=== PATIENT | female | born 1935 | race Caucasian/White ===

== ENCOUNTER 2017-08-27 07:44 | Observation (INO) | payer MEDICARE, OTHER ==
[2017-08-27 08:42] LABS: ABS Basophils 0 10^3/ul (0-0.2); ABS Eosinophils 0 10^3/ul (0-0.6); ABS Lymphocytes 0.2 10^3/ul (1.0-4.8); ABS Monocytes 0.7 10^3/ul (0-0.8); ABS Neutrophils 14.3 10^3/ul (1.5-7.7); ABS Nucleated RBC 0 10^3/ul; Eosinophil % 0.2 % (0-6); Hematocrit 43 % (35-47); Hemoglobin 14.5 g/dl (12.0-16.0); Lymphocyte % 1.4 % (25-47); Mean Corpuscular HGB Conc 34 g/dl (31-36); Mean Corpuscular Hemoglobin 31 pg (27-31); Mean Corpuscular Volume 92 fL (80-97); Mean Platelet Volume 9.1 um3 (7.4-10.4); Nucleated Red Blood Cells % 0.1; Platelet Count 186 10^3/ul (150-450); Red Blood Count 4.69 10^6/ul (4.0-5.4); Red Cell Distribution Width 15 % (10.5-15); White Blood Count 15.3 10^3/ul (3.5-10.8)
[2017-08-27 08:59] LABS: EGFR Non-African American 57.9 (>60)
--- NOTE | 2017-08-27 09:59 | RAD ---
INDICATION: Epigastric abdominal pain. COMPARISON: No relevant prior exams available on the [facility] for comparison. TECHNIQUE: Dual energy PA and routine lateral views of the chest were obtained. REPORT: Minimal linear atelectasis at the LEFT lung base. The lungs and pleural spaces are otherwise clear. Negative for pneumothorax. The heart, pulmonary vasculature, and mediastinal contours are unremarkable. Negative for free air beneath the diaphragm. Diffuse thoracic degenerative spondylosis. Degenerative arthropathy at the shoulders with loose body at the RIGHT subcoracoid recess. IMPRESSION: 1. Minimal LEFT basilar linear subsegmental atelectasis. 2. Negative for free air beneath the diaphragm.
--- NOTE | 2017-08-27 09:59 | RAD ---
INDICATION: Epigastric pain. COMPARISON: Correlation is made with a prior chest x-ray study from August 27, 2017. TECHNIQUE: Frontal supine films of the abdomen were obtained. FINDINGS: The small bowel and colon appear nondistended. There are several surgical clips in the right upper quadrant most consistent with prior cholecystectomy. There is a calcific density which projects over the lower pole of the left kidney measuring 4 mm in size most suggestive of a renal calculus. There are multiple small calcific densities which project bilaterally over the pelvis. There is severe osteoarthritic change in the right hip. IMPRESSION: 1. NO EVIDENCE FOR OBSTRUCTION. 2. PROBABLE LEFT RENAL CALCULUS. 3. SEVERE OSTEOARTHRITIC CHANGE IN THE RIGHT HIP.
--- NOTE | 2017-08-27 10:31 | RAD ---
INDICATION: Jaundice, epigastric pain. COMPARISON: There are no prior studies available for comparison. TECHNIQUE: Multiple real-time images of the right upper quadrant were obtained. FINDINGS: The patient is status post cholecystectomy. No intra or extrahepatic ductal distention is present. The common bile duct measured 0.7 cm in diameter. The liver is normal in size without significant focal abnormality. The pancreas is partially obscured by overlying bowel gas. The right kidney is normal in size without evidence for hydronephrosis. IMPRESSION: STATUS POST CHOLECYSTECTOMY, OTHERWISE UNREMARKABLE STUDY.
[2017-08-27] MEDS ORDERED: Iodixanol* (CONTRAST) 320 MG/ML 100 ML SDV IV ONE (11:00)
[2017-08-27 12:05] LABS: Urine Appearance Clear; Urine Blood Negative (Negative); Urine Color Amber; Urine Ketones Negative (Negative); Urine Protein Negative (Negative); Urine Specific Gravity 1.013 (1.010-1.030); Urine Urobilinogen Positive (Negative)
[2017-08-27] MEDS ORDERED: Ondansetron INJ* 2 MG/ML VIAL ONE (12:21)
[2017-08-27] MEDS ORDERED: Ondansetron INJ* 2 MG/ML VIAL IV ONE (12:23)
[2017-08-27] MEDS ORDERED: Iodixanol 320 (CONTRAST) 100 ML SDV IV ONE (13:20)
--- NOTE | 2017-08-27 13:55 | RAD ---
Indication: Jaundice, mid abdomen pain. Contrast: Administered 197.2 ml of VISAPAQUE 320 mg/ml CT of the abdomen and pelvis was performed after oral and IV contrast administration. Coronal and sagittal reconstructed images were obtained. Lung bases demonstrate no pleural fluid, nodules or masses. Heart is of normal size without evidence of pericardial effusion. The liver is normal in size. There are no focal lesions or intrahepatic ductal dilatation noted. The patient is status post cholecystectomy. The common duct measures up to 8 mm. No abrupt termination of the duct is noted. The pancreas demonstrates hypodense area in the uncinate process. The possibility of pancreatitis should be considered. No pancreatic duct dilatation is noted however. The spleen is normal in size. No adrenal lesions are noted. The kidneys demonstrate symmetric nephrograms without focal lesions. Atherosclerotic aorta is noted. Inferior vena cava is unremarkable. No dilated loops of bowel are noted. The colon is filled with stool. The uterus and ovaries are unremarkable. Small bowel demonstrates no evidence of abnormal dilatation. No pelvic adenopathy is noted. The bladder is unremarkable. The appendix is visualized and is normal. No dilated loops of bowel are noted. IMPRESSION: Patient is status post cholecystectomy. There is a prominent common duct however no abrupt termination noted. Prominent common duct measures up to 8 mm and may be due to postcholecystectomy state of the patient. No focal hepatic lesions are noted. Hypodense area in the uncinate process and head of pancreas for which pancreatic head should be considered.
[2017-08-27] MEDS ORDERED: Ciprofloxacin 400MG IVPREMIX(* 400 MG/200 ML BAG IVPB ONE (14:02)
[2017-08-27] MEDS ORDERED: cefTRIAXone(*) 1 GM in NS 0.9% 50 ML* 50 ML IVPB ONE (14:02)
[2017-08-27] MEDS ORDERED: metroNIDAZOLE IV 500 MG/100ML* 500 MG/100 ML BAG IVPB ONE (14:03)
[2017-08-27] MEDS ORDERED: Ondansetron INJ* 2 MG/ML VIAL IV PRN (14:25)
[2017-08-27] MEDS ORDERED: NS 0.9% 1000 ML* 1,000 ML IV SCH (14:30)
[2017-08-27 14:45] LABS: ABS Basophils 0 10^3/ul (0-0.2); ABS Eosinophils 0 10^3/ul (0-0.6); ABS Lymphocytes 0.5 10^3/ul (1.0-4.8); ABS Monocytes 1.1 10^3/ul (0-0.8); ABS Neutrophils 15.1 10^3/ul (1.5-7.7); ABS Nucleated RBC 0 10^3/ul; Eosinophil % 0.1 % (0-6); Hematocrit 41 % (35-47); Hemoglobin 13.7 g/dl (12.0-16.0); Mean Corpuscular HGB Conc 34 g/dl (31-36); Mean Corpuscular Hemoglobin 31 pg (27-31); Mean Corpuscular Volume 92 fL (80-97); Mean Platelet Volume 8.9 um3 (7.4-10.4); Nucleated Red Blood Cells % 0; Platelet Count 187 10^3/ul (150-450); Red Blood Count 4.44 10^6/ul (4.0-5.4); Red Cell Distribution Width 15 % (10.5-15); White Blood Count 16.7 10^3/ul (3.5-10.8)
[2017-08-27 15:01] LABS: EGFR Non-African American 64.2 (>60); INR 1.07 (0.77-1.02)
--- NOTE | 2017-08-27 16:16 | HP ---
CC: Dr. Matias; Dr. Krishna* HISTORY AND PHYSICAL: DATE OF ADMISSION: 08/27/17 PRIMARY CARE PROVIDER: Dr. Matias. ATTENDING PHYSICIAN WHILE IN THE HOSPITAL: Flaquita Aguillon MD* (report dictated by Larry Salgado NP). CONSULTING HOSPITAL COOK: Dr. Krishna. CHIEF COMPLAINT: Abdominal pain. HISTORY OF PRESENT ILLNESS: Ms. Perez is an 82-year-old female patient. She has a history of hypertension, GERD, history of cholelithiasis and cataract extraction. She comes into the ED today. She says that since April last year she has had 5 attacks, she recalls them where she gets pain in the epigastric area, right upper and right lower quadrant and that does radiate down into her stomach with associated nausea with diarrhea, often times associated after eating food. She said the last time she had attacks was in June, but then since in August she has had 3 attacks like this, particularly in the setting of eating food. She said most recently last night she had a styles soup and she noted that couple hours later she started getting the pain again. She said it is just under her ribcage, described it as a pressure. She has felt bloated. She felt nauseous. She did not vomit or have diarrhea at this time, but the pain usually went away, but it persisted and she woke up this morning with the pain still there. She was concerned because it just was not going away. She had no fevers or chills that she is aware of. She did not vomit. She was concerned, ended up coming into the ER. She denied having any chest pain. No shortness of breath. No diarrhea this time around. She describes the pain would kind of come and go in waves and it was just unrelenting. She had an attack not quite as severe as it was previously about a year ago and required an ERCP down in [place]. She came here, was evaluated in the ED and it was noted that her LFTs were elevated. The CT was concerning for the increasing size in the gallbladder duct and we were asked to evaluate for admission. PAST MEDICAL HISTORY: Significant for: 1. Hypertension. 2. GERD. 3. Cholelithiasis. 4. Cataracts. PAST SURGICAL HISTORY: 1. She has had cholecystectomy. 2. ERCP done a year ago in [facility] in [place]. We are trying to get records. 3. Cataract extraction. HOME MEDICATIONS: Included: 1. Tylenol 2 tabs p.o. b.i.d. 2. Prilosec 20 mg daily. 3. Hydrochlorothiazide 25 mg daily. 4. Atenolol 25 mg daily. ALLERGIES TO MEDICATIONS: Include BACITRACIN, NEOMYCIN, and POLYMYXIN B. FAMILY HISTORY: Mother had a history of heart disease. Father had a history of CVA. SOCIAL HISTORY: She does not smoke. She rarely drinks alcohol. Surrogate decisionmaker is her daughter. REVIEW OF SYSTEMS: There is no documented fever. She denies any significant weight change. There is no double vision. She denies having any ear discharge. There is no rhinorrhea. There is no sore throat. No thyroid enlargement. She denies having any chest pain. There is no orthopnea and there is no nocturnal dyspnea. There was abdominal pain per my HPI. There was nausea and vomiting with previous attacks and not today's. She denies having any lightheadedness. No dysuria, no frequency. There was no seizure and no loss of consciousness. No pruritus and no skin ulcerations. Review of 14 systems completed, all others negative. PHYSICAL EXAMINATION GENERAL: At this time, Ms. Perez is an 82-year-old female patient. She is sitting in the ED stretcher. She does not appear to be in any acute distress. VITAL SIGNS: Blood pressure 123/80, pulse 87, respirations 14, O2 sat 97%, temperature 98.6. HEENT: Head: Atraumatic and normocephalic. Eyes: EOMs are intact. Sclerae anicteric and not pale. Throat: Oral mucosa appears to be moist. No oropharyngeal erythema. NECK: Supple. LUNGS: Clear to auscultation bilaterally. No wheezes, rales, or rhonchi. HEART: Sounds S1, S2. Regular rate and rhythm. No murmurs, rubs, or gallops. ABDOMEN: Soft. It was flat, nontender. EXTREMITIES: Pulses were 2+ throughout. She is able to move all 4 extremities with 5/5 strength. NEUROLOGICAL: The patient is awake. She is alert. She is oriented x3. Tongue midline. No gross focal deficits. SKIN: Intact. DIAGNOSTIC STUDIES/LAB DATA: WBC of 15.3, RBC of 4.69, hemoglobin 14.5, hematocrit of 43, platelet count of 186. Chemistries: Sodium of 139, potassium of 3.8, chloride of 101, bicarb 28, BUN is 13, creatinine of 0.93, glucose 144, lactic 2.0, calcium 9.3. Total bili 2.1, AST 675, ALT 538, alk phos 238. Troponin 0.01, repeat 0.01. Lipase 13. Urine showed positive urobilinogen, 2+ leukocyte esterase, 1+ wbc's. She had multiple imaging here in the ED. Chest x-ray obtained today revealed minimal left basilar subsegmental atelectasis, negative for free air beneath the diaphragm. She did have an abdominal x-ray obtained today, no evidence for obstruction, probable left renal calculus, severe osteoarthritic change in the right hip. Abdominal pelvis CT obtained today revealing the patient is status post cholecystectomy. There is a prominent duct; however, no abrupt termination noted, prominent common duct measured up to 8 mm and may be due to post cholecystectomy state of the patient. No focal hepatic lesions are noted. Hypodense area in the uncinate process of the head of the pancreas for which pancreatic head should be considered. Ultrasound gallbladder, status post cholecystectomy, otherwise unremarkable study. She had an EKG obtained today showing normal sinus rhythm, rate of 87, no ST elevations or T-wave inversions were noted, no previous for comparison. Old medical records were reviewed. ASSESSMENT AND PLAN: Ms. Perez is an 82-year-old female patient coming into the ED today with complaints of abdominal pain, on evaluation found to have elevated liver function tests. The pain is associated with p.o. intake. We were asked to evaluate for admission. She will be admitted under observation status for: 1. Choledocholithiasis. Again, at this point, Dr. Krishna will be evaluating. Plan will be for MRCP. I do note the concern for the pancreatic process. Again , the MRCP is being obtained and GI will be asked to evaluate as well. At this point, she is pain free. My plan will be to repeat her LFTs in the morning, hydrate her, n.p.o. after midnight for possible ERCP in the morning as she may need stenting or stone extraction. Again, GI will be evaluating. 2. Leukocytosis. This could be a leukemoid reaction due to the pain. She is no longer tender. She has no fever here. She did receive 1 dose of antibiotics in the ED. We will panculture her. We will follow her. Should she spike a fever, I have a low threshold to restart antibiotics. 3. Hypertension. Continue meds as prescribed with the exception of the hydrochlorothiazide. 4. Gastroesophageal reflux disease. Continue PPI therapy. 5. History of gallstones. Again, at this point, GI will be following. I did also place a nutrition consult. The patient is to avoid fatty meals. 6. History of cataracts. Follow up with PCP. 7. DVT Prophylaxis: Heparin subcu has been ordered. 8. Code status: Full code. 9. Fluids, electrolytes, and nutrition: Clear liquid diet and n.p.o. after midnight. TIME SPENT: Time spent on admission 50 minutes, greater than half the time was spent [id number] with the patient obtaining my history and physical, other half of the time was spent going over the plan of care with the patient and implementing the plan of care. I discussed the plan of care with my attending, Dr. Aguillon, she is in agreement. LARRY SALGADO, MARLENE [id number]/[facility] #: [id number] [place]
[2017-08-27] MEDS: Atenolol TAB* 25 MG PO SCH (16:33)
--- NOTE | 2017-08-27 17:52 | RAD ---
Indication: Abdominal pain. Axial T2 fat sat, coronal T2 and heavily T2-weighted images of the biliary tree was obtained. 3-D reconstructed images were obtained. There is no evidence of biliary duct dilatation noted. No evidence of filling defect is noted to suggest a common duct stone. No abrupt termination of the common bile duct is noted. The left and right hepatic ducts are unremarkable. The pancreatic duct demonstrates no evidence of abnormal dilatation. There may be evidence of a separate origin of the pancreatic duct and the common bile duct suggestive of pancreatic divisum. IMPRESSION: No filling defects are noted. Patient status post cholecystectomy.
--- NOTE | 2017-08-27 21:25 | CONS ---
GASTROENTEROLOGY CONSULTATION REPORT: DATE OF CONSULT: 08/27/17 CONSULTING PHYSICIAN: Dr. Roderick Kaiser, and Dr. Cherri Matias [facility]*. REASON FOR CONSULTATION: Epigastric pain and elevated liver function tests. HISTORY OF PRESENT ILLNESS: This 82-year-old woman developed epigastric pain yesterday evening. It lasted all night. There was profound nausea, but no vomiting. She was feeling distressed this morning, came to the emergency room. Over the next couple of hours, the pain dissipated. Her vital signs were normal , but no fever. Her white count was elevated at 15 and LFTs elevated with transaminases in the 100s. She was admitted to the floor. She had had similar pain on August 25 and also on August 21. About four months ago, she had three days of significant pain but decided that she was taking her medications on her own, although at once she decided to spread them out and she did seem to do better for a couple of months. Going back to June 2016 with the similar pain, she was seen at [facility] in [place], [place] where she underwent ERCP and removal of bile duct stones. Those records are under request. Prior to that, she had had her gallbladder out in 1996 at this hospital. PAST MEDICAL HISTORY: Cholecystectomy, obesity. DICTATION ENDS ABRUPTLY HERE. [id number]/[facility] #: [id number] [facility] CENTERHope
[2017-08-27 21:51] LABS: Urine Appearance Clear; Urine Blood Negative (Negative); Urine Color Yellow; Urine Ketones Negative (Negative); Urine Protein Negative (Negative); Urine Specific Gravity 1.031 (1.010-1.030); Urine Urobilinogen Negative (Negative)
[2017-08-27] MEDS ORDERED: Heparin VIAL(*) 5000 UNITS/ML VIAL (FIVE THOUSAND) SUBCUT SCH (22:00)
--- NOTE | 2017-08-27 22:08 | CONS ---
GASTROENTEROLOGY CONSULT: DATE: 08/27/17 CONSULTING PHYSICIANS: Roderick Kaiser, ER; Cherri Matias, [facility]* REASON FOR CONSULTATION: Epigastric pain and abnormal liver function test. HISTORY OF PRESENT ILLNESS: This 82-year-old woman, who had her gallbladder out in 1996 at this hospital has had epigastric pain for number of times over the last 15 months. Last night, she developed severe pain and had it all night. There was nausea, but no vomiting. She came to the emergency room, where her vitals were stable and there was no fever. Her LFTs were substantially up and her white count had 15. She had had epigastric pain and an ERCP performed at [facility] in [place], [place], June 2016. Reportedly, bile duct stones were removed. She had recurring pain 3 days in late April 2017 and decided that she would just change the way she took her medications. She then seemed to be okay until 08/21/17 and she had pain and that relapsed on 08/25/17. She has never had any fever with any of these episodes. PAST MEDICAL HISTORY: 1. Hypertension - no sequelae. 2. Gastroesophageal reflux. 3. Status post cholecystectomy. 4. Status post cataract surgery. OUTPATIENT MEDICATIONS: Prilosec 20. Hydrochlorothiazide 25. Atenolol 25. Tylenol p.r.n. ALLERGIES: She lists TRIPLE ANTIBIOT[employer]MENT is causing a rash. She does not take NSAIDs. FAMILY HISTORY: No gastrointestinal problems she can recall. Her mother of CHF, her father of a CVA. 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 She has a daughter and granddaughter in town. She goes to [place] every year. REVIEW OF SYSTEMS: No history of seizures, syncope, CVA, UT, congestive failure , TB, hemoptysis, hepatitis, or renal stones. She had a colonoscopy over 15 years ago through the [facility] and recalls it was negative. PHYSICAL EXAMINATION: She is a generally healthy-appearing older woman, in no overt distress. She is anicteric. Her lungs are clear and heart sounds are normal. The abdomen is obese with normal bowel sounds, soft, and nontender. She has not had any pain in 8 hours. Extremities unremarkable. DIAGNOSTIC STUDIES/LAB DATA: Hemoglobin 13.7, hematocrit 41, platelets 187. BUN 12, creatinine 0.85. Bilirubin 2.1, AST 675, ALT 238. Lipase 13. Right upper quadrant ultrasound - no stones. MRCP - no stones. IMPRESSION AND PLAN: This 82-year-old woman with recurring pain consistent with biliary colic and seemingly confirmed as such with the elevated LFTs today , has had resolution of her pain and a negative MRCP. This might predict that she has passed the final stone. That theory needs to be confirmed by continuation without pain and resolution of LFTs. Awaiting that conclusion she will be provisionally set up for possible ERCP tomorrow, acknowledging it is probably only 25% likely that it will be needed acutely. Her course has been marked by many abrupt symptoms so ERCP may be needed for continuation of that pattern. [id number]/[facility] #: [id number] [place]
[2017-08-28 08:45] LABS: Hematocrit 38 % (35-47); Mean Corpuscular HGB Conc 34 g/dl (31-36); Mean Corpuscular Hemoglobin 32 pg (27-31); Mean Corpuscular Volume 93 fL (80-97); Mean Platelet Volume 9.8 um3 (7.4-10.4); Platelet Count 177 10^3/ul (150-450); Red Blood Count 4.12 10^6/ul (4.0-5.4); Red Cell Distribution Width 15 % (10.5-15); White Blood Count 9.6 10^3/ul (3.5-10.8)
[2017-08-28 08:52] LABS: INR 1.23 (0.77-1.02)
[2017-08-28] MEDS ORDERED: Omeprazole CAP* 20 MG PO SCH (09:00)
[2017-08-28] MEDS: Atenolol TAB* 25 MG PO SCH (10:02)
[2017-08-28 15:43] VITALS: BP 138/56
--- NOTE | 2017-08-28 20:00 | DS ---
CC: Dr. Matias; Dr. Krishna* DISCHARGE SUMMARY: DATE OF ADMISSION: 08/27/17 DATE OF DISCHARGE: 08/28/17 PRIMARY CARE PROVIDER: Dr. Matias. DISCHARGE DIAGNOSES: Right upper quadrant abdominal pain and elevation of liver function tests, likely due to transient choledocholithiasis that resolved. SECONDARY DIAGNOSES: 1. Status post cholecystectomy. 2. History of ERCP in June 2017 in [place] for choledocholithiasis. 3. History of hypertension. 4. History of gastroesophageal reflux disease. MEDICATIONS AT DISCHARGE: Include: 1. Acetaminophen on a p.r.n. basis. 2. Atenolol 25 mg daily. 3. Hydrochlorothiazide 25 mg daily. 4. Omeprazole 20 mg daily. LABORATORY DATA AND STUDIES PERFORMED DURING HOSPITAL STAY: Included: On 08/28, total bilirubin of 2.7, AST of 203, ALT of 308, alkaline phosphatase of 198. Lipase below 10. On 08/27/17, AST of 675, ALT of 538, alkaline phosphatase of 238. Lipase of 13. CBC on 08/28/17, white blood cell count of 9.2, hemoglobin of 13.0, hematocrit 38, and platelets of 177. Microbiology test showed negative blood cultures so far and urine culture that was unremarkable, showed mixed hubert with likely contamination. MRCP performed on 08/27/17, impression: "No filling defects are noted. The patient is status post cholecystectomy." Further on, in the body of the report , it is mentioned that there may be evidence of separate origin of the pancreatic duct in the common bile duct suggestive of pancreatic divisum. Abdomen and pelvis CT obtained on 08/27/17, impression: "The patient is status post cholecystectomy. There is a prominent common bile duct; however, no obstruction noted. Prominent common bile duct measures up to 8 mm and maybe due to postcholecystectomy state in the patient. No focal hepatic lesions are noted. Hypodense area in the uncinate process and the head of pancreas for which pancreatic head process should be considered." Gallbladder ultrasound obtained at admission, impression: "Status post cholecystectomy. Otherwise, unremarkable study." CONSULTATIONS DURING THE HOSPITAL STAY: Included Dr. Krishna from Gastroenterology. HOSPITALIZATION COURSE: Sandra Perez is an 82-year-old female with a history of status post cholecystectomy, history of recurrent choledocholithiasis for which she was evaluated with ERCP in one of the hospitals in [place] in June 2017, who presented complaining of right upper quadrant abdominal pain. Her liver function tests were elevated, but there was no evidence of choledocholithiasis. A subsequent MRCP showed no abnormalities of the common bile duct. At this point, it was thought and presumed that the patient must have passed common bile duct stone. Dr. Krishna saw the patient for consultation and recommended a followup outpatient. The patient was observed on medical floor. She was given initially antibiotics since she had mild leukocytosis. No evidence of infection was noted throughout her hospital stay and the antibiotics were discontinued. At this point, the patient likely passed the common bile duct stone and she is going to follow up with Dr. Krishna in approximately 2 weeks. DIET AT DISCHARGE: Low fat. PHYSICAL EXAMINATION AT DISCHARGE: Blood pressure of 143/55, heart rate of 72 and regular, respiratory rate 17, oxygen saturation 97% on room air, temperature 98.4. General: The patient is a very pleasant 82-year-old female, who is in no acute distress. Alert, awake, and oriented x3. HEENT: Head: Atraumatic, normocephalic. Eyes: Pupils are equal, reactive to light and accommodation. Oropharynx is clear. Mucosa moist. Neck: Supple. No JVD. No bruits bilaterally. Cardiovascular: Regular rate and rhythm. No murmur. Respiratory: Clear to auscultation bilaterally. Abdomen: Soft, nontender. Bowel sounds are present in all 4 quadrants. Extremities: There is no edema. Pulses are +2 bilaterally. No clubbing or cyanosis. Neuro Evaluation: Speech clear. Cranial nerves II through XII grossly intact. Motor strength is 5/5 bilaterally. Please note that this is a short summary of the patient's hospitalization. Please refer to further medical records for details. TIME SPENT: Approximately 45 minutes was spent on the patient's discharge. [id number]/[facility] #: [id number] [facility]
--- NOTE | 2017-08-29 13:51 | ED ---
Lemuel Haywood Stephanie, scribed for Roderick Kaiser MD on 08/27/17 at 1408 . Progress - Progress Note Progress Note: At 14:00, Dr. Krishna recommends MRCP, admission, and abx for cholangitis. Course/Dx - Course Course Of Treatment: At 13:46, ED physician talked to Dr. Aguillon about possible admission of the pt. Dr. Aguillon accepts the pt for admission. - Diagnoses Provider Diagnoses: EKG abnormality - Provider Notifications Discussed Care Of Patient With: Flaquita Aguillon Time Discussed With Above Provider: 13:46 Instructed by Provider To: Admit As Observation Discharge - Sign-Out/Discharge Documenting (check all that apply): Discharge/Admit/Transfer - Discharge Plan Condition: Stable Disposition: ADMITTED TO [facility] - Billing Disposition and Condition Condition: STABLE Disposition: [facility] The documentation as recorded by the Lemuel jesus Stephanie accurately reflects the service I personally performed and the decisions made by Job dc Jerry, MD.
--- NOTE | 2017-08-29 13:52 | ED ---
Brianna Haywood Julia, scribed for Roderick Kaiser MD on 08/27/17 at 0801 . Abdominal Pain/Female - HPI Summary HPI Summary: This patient is a 82 year old F BIBA to [facility] accompanied by her family with a chief complaint of intermittent abdominal pain since 05/02/18 she describes as attacks. She describes her attacks as sudden onset upper abdominal pain described as pressure with nausea, diarrhea, and dizziness. She states she feels like she is going to blow up when she is having these attacks. She reports these attacks typically last an hour and have occurred on 05/02/17, , 08/21/17, and 08/25/17. She states the attack began last night and has been constant but gradually improving since then. The patient rates the pain 7/10 in severity currently but rates it 10/10 earlier today. Patient denies fever, sweats, SOB, and black BM. Her last BM was yesterday. She believes she is gaining weight. She is scheduled for a GI appointment tomorrow at [place]. Medications and allergies reviewed with patient. - History of Current Complaint Chief Complaint: EDAbdPain Stated Complaint: ABD PAIN Time Seen by Provider: 08/27/17 07:57 Hx Obtained From: Patient Onset/Duration: Sudden Onset, Lasting Hours Timing: Intermittent Episode Lasting - hour Severity Initially: Severe Severity Currently: Moderate Pain Intensity: 7 Pain Scale Used: 0-10 Numeric Location: Epigastric - upper abdomen Character: Other: - pressure, "explode" Alleviating Factor(s): Nothing Associated Signs and Symptoms: Positive: Dizzy, Nausea, Diarrhea Allergies/Adverse Reactions: Allergies Allergy/AdvReac Type Severity Reaction Status Date / Time bacitracin Allergy Rash And Verified 08/27/17 07:56 Itching neomycin Allergy Rash And Verified 08/27/17 07:56 [From Neosporin Itching ([id number])] polymyxin B Allergy Rash And Verified 08/27/17 07:56 [From Neosporin Itching ([id number])] Home Medications: Home Medications Acetaminophen [Tylenol Arthritis] 2 tab PO BID 08/27/17 [History Confirmed 08/27] PMH/Surg Hx/FS Hx/Imm Hx Cardiovascular History: Reports: Hx Hypertension GI History: Reports: Hx Gastroesophageal Reflux Disease Musculoskeletal History: Reports: Hx Arthritis - fingers, Hx Bursitis - hip Sensory History: Reports: Hx Cataracts - pending surgery, Hx Contacts or Glasses Denies: Hx Hearing Aid Opthamlomology History: Reports: Hx Cataracts - pending surgery, Hx Contacts or Glasses - Surgical History Surgery Procedure, Year, and Place: tonsils as a child. gall bladder removed [place] [facility] [place] Anesthesia Reactions: No Infectious Disease History: No Infectious Disease History: Denies: Traveled Outside the [place] in Last 30 Days - Family History Known Family History: Positive: Other - CVA grandfather Negative: Cardiac Disease - no [place] - Social History Occupation: Retired Alcohol Use: Rare Substance Use Type: Reports: None Smoking Status (MU): Never Smoked Tobacco Review of Systems Negative: Fever, Chills, Skin Diaphoresis Negative: Erythema Negative: Sore Throat Negative: Chest Pain Negative: Shortness Of Breath, Cough Gastrointestinal: Other - black stool Positive: Abdominal Pain, Diarrhea, Nausea. Negative: Vomiting Negative: dysuria, hematuria Negative: Myalgia, Edema Negative: Rash Neurological: Other - dizziness All Other Systems Reviewed And Are Negative: Yes Physical Exam - Summary Physical Exam Summary: Constitutional: Well-developed, Well-nourished, Alert. (-) Distressed Skin: Warm, Dry HENT: Normocephalic; Atraumatic Eyes: Conjunctiva normal Neck: Musculoskeletal ROM normal neck. (-) JVD, (-) Stridor, (-) Tracheal deviation Cardio: Rhythm regular, rate normal, Heart sounds normal; Intact distal pulses; The pedal pulses are 2+ and symmetric. Radial pulses are 2+ and symmetric. (-) Murmur Pulmonary/Chest wall: Effort normal. (-) Respiratory distress, (-) Wheezes, (-) Rales Abd: Soft, (-) Tenderness, (-) Distension, (-) Guarding, (-) Rebound Musculoskeletal: (-) Edema Lymph: (-) Cervical adenopathy Neuro: Alert, Oriented x3 Psych: Mood and affect Normal Triage Information Reviewed: Yes Vital Signs On Initial Exam: Initial Vitals Temp Pulse Resp BP Pulse Ox 98.6 F 92 23 154/87 95 08/27/17 07:49 08/27/17 07:49 08/27/17 07:49 08/27/17 07:49 08/27/17 07:49 Vital Signs Reviewed: Yes Diagnostics - Vital Signs Vital Signs Temp Pulse Resp BP Pulse Ox 08/27/17 07:49 98.6 F 92 23 154/87 95 - Laboratory Lab Results: Lab Results 08/27/17 08/27/17 08/27/17 Range/Units 08:33 08:33 08:33 WBC 15.3 H (3.5-10.8) 10^3/ul RBC 4.69 (4.0-5.4) 10^6/ul Hgb 14.5 (12.0-16.0) g/dl Hct 43 (35-47) % MCV 92 (80-97) fL MCH 31 (27-31) pg MCHC 34 (31-36) g/dl RDW 15 (10.5-15) % Plt Count 186 (150-450) 10^3/ul MPV 9.1 (7.4-10.4) um3 Neut % (Auto) 93.4 H (38-83) % Lymph % (Auto) 1.4 L (25-47) % Dunn % (Auto) 4.8 (0-7) % Eos % (Auto) 0.2 (0-6) % Baso % (Auto) 0.2 (0-2) % Absolute Neuts (auto) 14.3 H (1.5-7.7) 10^3/ul Absolute Lymphs (auto) 0.2 L (1.0-4.8) 10^3/ul Absolute Monos (auto) 0.7 (0-0.8) 10^3/ul Absolute Eos (auto) 0 (0-0.6) 10^3/ul Absolute Basos (auto) 0 (0-0.2) 10^3/ul Absolute Nucleated RBC 0 10^3/ul Nucleated RBC % 0.1 Sodium 139 (139-145) mmol/L Potassium 3.8 (3.5-5.0) mmol/L Chloride 101 (101-111) mmol/L Carbon Dioxide 28 (22-32) mmol/L Anion Gap 10 (2-11) mmol/L BUN 13 (6-24) mg/dL Creatinine 0.93 (0.51-0.95) mg/dL Est GFR ( Amer) 74.4 (>60) Est GFR (Non-Af Amer) 57.9 (>60) BUN/Creatinine Ratio 14.0 (8-20) Glucose 144 H (70-100) mg/dL Lactic Acid 2.0 (0.5-2.0) mmol/L Calcium 9.3 (8.6-10.3) mg/dL Total Bilirubin 2.10 H (0.2-1.0) mg/dL AST 675 H (13-39) U/L ALT 538 H (7-52) U/L Alkaline Phosphatase 238 H (34-104) U/L Troponin I 0.01 (<0.04) ng/mL Total Protein 7.3 (6.4-8.9) g/dL Albumin 4.1 (3.2-5.2) g/dL Globulin 3.2 (2-4) g/dL Albumin/Globulin Ratio 1.3 (1-3) Lipase 13 (11.0-82.0) U/L Urine Color Urine Appearance Urine pH (5-9) Ur Specific Douglas (1.010-1.030) Urine Protein (Negative) Urine Ketones (Negative) Urine Blood (Negative) Urine Nitrate (Negative) Urine Bilirubin (Negative) Urine Urobilinogen (Negative) Ur Leukocyte Esterase (Negative) Urine WBC (Auto) (Absent) Urine RBC (Auto) (Absent) Ur Squamous Epith Cells (Absent) Urine Bacteria (Absent) Urine Glucose (Negative) 08/27/17 08/27/17 Range/Units 11:18 11:22 WBC (3.5-10.8) 10^3/ul RBC (4.0-5.4) 10^6/ul Hgb (12.0-16.0) g/dl Hct (35-47) % MCV (80-97) fL MCH (27-31) pg MCHC (31-36) g/dl RDW (10.5-15) % Plt Count (150-450) 10^3/ul MPV (7.4-10.4) um3 Neut % (Auto) (38-83) % Lymph % (Auto) (25-47) % Dunn % (Auto) (0-7) % Eos % (Auto) (0-6) % Baso % (Auto) (0-2) % Absolute Neuts (auto) (1.5-7.7) 10^3/ul Absolute Lymphs (auto) (1.0-4.8) 10^3/ul Absolute Monos (auto) (0-0.8) 10^3/ul Absolute Eos (auto) (0-0.6) 10^3/ul Absolute Basos (auto) (0-0.2) 10^3/ul Absolute Nucleated RBC 10^3/ul Nucleated RBC % Sodium (139-145) mmol/L Potassium (3.5-5.0) mmol/L Chloride (101-111) mmol/L Carbon Dioxide (22-32) mmol/L Anion Gap (2-11) mmol/L BUN (6-24) mg/dL Creatinine (0.51-0.95) mg/dL Est GFR ( Amer) (>60) Est GFR (Non-Af Amer) (>60) BUN/Creatinine Ratio (8-20) Glucose (70-100) mg/dL Lactic Acid (0.5-2.0) mmol/L Calcium (8.6-10.3) mg/dL Total Bilirubin (0.2-1.0) mg/dL AST (13-39) U/L ALT (7-52) U/L Alkaline Phosphatase (34-104) U/L Troponin I 0.01 (<0.04) ng/mL Total Protein (6.4-8.9) g/dL Albumin (3.2-5.2) g/dL Globulin (2-4) g/dL Albumin/Globulin Ratio (1-3) Lipase (11.0-82.0) U/L Urine Color Yanelis Urine Appearance Clear Urine pH 7.0 (5-9) Ur Specific Douglas 1.013 (1.010-1.030) Urine Protein Negative (Negative) Urine Ketones Negative (Negative) Urine Blood Negative (Negative) Urine Nitrate Negative (Negative) Urine Bilirubin Negative (Negative) Urine Urobilinogen Positive A (Negative) Ur Leukocyte Esterase 2+ A (Negative) Urine WBC (Auto) 1+(6-10/hpf) A (Absent) Urine RBC (Auto) Trace(0-2/hpf) (Absent) Ur Squamous Epith Cells Present A (Absent) Urine Bacteria Absent (Absent) Urine Glucose Negative (Negative) Result Diagrams: 08/28/17 08:08 08/27/17 14:35 Lab Statement: Any lab studies that have been ordered have been reviewed, and results considered in the medical decision making process. - Radiology CXR Radiology Interpretation Completed By: Radiologist - 1. Minimal LEFT basilar linear subsegmental atelectasis. 2. Negative for free air beneath the diaphragm. ED Physician has reviewed this report. Abdomen XR Radiology Interpretation Completed By: Radiologist - 1. NO EVIDENCE FOR OBSTRUCTION. 2. PROBABLE LEFT RENAL CALCULUS. 3. SEVERE OSTEOARTHRITIC CHANGE IN THE RIGHT HIP. ED Physician has reviewed this report. - CT A/P CT Interpretation Completed By: Radiologist - Patient is status post cholecystectomy. There is a prominent common duct however no abrupt termination noted. Prominent common duct measures up to 8 mm and may be due to postcholecystectomy state of the patient. No focal hepatic lesions are noted. Hypodense area in the uncinate process and head of pancreas for which pancreatic head should be considered. ED Physician has reviewed this report. - EKG 0820 Cardiac Rate: NL - at 87 BPM EKG Rhythm: Sinus Rhythm EKG Interpretation: anterior T wave flattening, no STEMI - Additional Comments Diagnostic Additional Comments: A Gallbladder US reveals, as per radiologist: STATUS POST CHOLECYSTECTOMY, OTHERWISE UNREMARKABLE STUDY. ED Physician has reviewed this report. Re-Evaluation - Re-Evaluation 1 Re-Evaluation Time: 13:16 Change: Improved Comment: Pts pain is resolved with no tenderness. Pt states she is feeling better, but had vomitted once. Abdominal Pain Fem Course/Dx - Diagnoses Differential Diagnosis: Positive: Other - acute coronary, IBS, reflux disease Provider Diagnoses: EKG abnormality - Provider Notifications Discussed Care Of Patient With: Feroz Krishna - gastroenterology Time Discussed With Above Provider: 13:11 Instructed by Provider To: Loco Krishna will see due to concern for recurrent common bile duct stone Discharge - Sign-Out/Discharge Documenting (check all that apply): Discharge/Admit/Transfer - admit - Discharge Plan Condition: Stable Disposition: ADMITTED TO [facility] - Billing Disposition and Condition Condition: STABLE [place]position[place] [facility] [place] The documentation as recorded by the Brianna jesus Julia accurately reflects the service I personally performed and the decisions made by , Roderick Kaiser MD.
== END 2017-08-28 16:00 | disposition home or self-care (01) ==
LOC: ED 07:44 → MED 14:22
PROVIDERS: ADMIT Internal Medicine; ATTEND Internal Medicine
DX: R10.11 Right upper quadrant pain (principal); I10 Essential (primary) hypertension; K21.9 Gastro-esophageal reflux disease without esophagitis; K80.20 Calculus of gallbladder without cholecystitis without obstruction; Z88.8 Allergy status to other drugs, medicaments and biological substances; D72.829 Elevated white blood cell count, unspecified
CPT/HCPCS: 36415; 71046; 74018; 74177; 74181; 76376; 76705; 80053; 80076; 81003; 81015; 82565; 83605; 83690; 84484; 84520; 85025; 85027; 85610; 85730; 87040; 87086; 93005; 96365; 99283; A9270-GY; G0378; J0744; J2405; J3490; Q9967

== ENCOUNTER 2019-04-11 19:13 | Emergency (ER) | payer MEDICARE, OTHER ==
[2019-04-11 19:25] VITALS: BP 121/65
--- NOTE | 2019-04-11 20:38 | UC ---
Abdominal Pain Female HPI - HPI Summary HPI Summary: PATIENT HAS BEEN EXPERIENCING EPISODES OF NAUSEA, VOMITING AND DIARRHEA WITH CHILLS INTERMITTENTLY SINCE THE SUMMER. WAS REFERRED TO GASTROENTEROLOGY BY HER PCP WHO STARTED HER ON A PPI. OVER THE PAST 3 DAYS SHE HAS HAD WORSENING SYMPTOMS. CALLED GI YESTERDAY BUT THEY WERE UNABLE TO SEE HER FOR ANOTHER 2 WEEKS SO SHE CAME HERE TODAY. STATES SHE FEELS LIKE HER STOMACH IS TWISTED UP IN KNOTS. SHE WAS GIVEN ZOFRAN BUT HAS BEEN AFRAID TO USE IT BECAUSE SHE READ THE FINE PRINT. - History of Current Complaint Chief Complaint: UCGI Stated Complaint: VOMITING, CHILLS Time Seen by Provider: 04/11/19 20:11 Hx Obtained From: Patient, Family/Voltage Tester - DAUGHTER Severity Initially: Moderate Severity Currently: Mild Pain Intensity: 0 Pain Scale Used: 0-10 Numeric Location: Epigastric Radiates: No Character: Sharp Aggravating Factor(s): Nothing Alleviating Factor(s): Spontaneous Resolution Associated Signs and Symptoms: Positive: Nausea, Vomiting, Diarrhea. Negative: Blood in Stool, Urinary Symptoms Allergies/Adverse Reactions: Allergies Allergy/AdvReac Type Severity Reaction Status Date / Time bacitracin Allergy Rash And Verified 04/11/19 19:26 Itching neomycin Allergy Rash And Verified 04/11/19 19:26 [From Neosporin Itching ([id number])] polymyxin B Allergy Rash And Verified 04/11/19 19:26 [From Neosporin Itching ([id number])] PMH/Surg Hx/FS Hx/Imm Hx Cardiovascular History: Hypertension - Surgical History Surgical History: Yes Surgery Procedure, Year, and Place: Tonsils. Gall bladder removed [place] [facility] [place] - Family History Known Family History: Positive: Other - CVA grandfather Negative: Cardiac Disease - no [place] - Social History Alcohol Use: Rare Substance Use Type: None Smoking Status (MU): Never Smoked Tobacco Review of Systems All Other Systems Reviewed And Are Negative: Yes Constitutional: Positive: Chills Respiratory: Positive: Negative Cardiovascular: Positive: Negative Gastrointestinal: Positive: Vomiting, Diarrhea, Nausea Genitourinary: Positive: Negative Physical Exam Triage Information Reviewed: Yes Appearance: Well-Appearing, No Pain Distress, Well-Nourished Vital Signs: Initial Vital Signs Temp 98.4 F 04/11/19 19:22 Pulse 85 12/07/19 19:22 Resp 18 04/11/19 19:22 BP 121/65 04/11/19 19:22 Pulse Ox 98 04/11/19 19:22 Vital Signs Reviewed: Yes Eyes: Positive: Conjunctiva Clear ENT: Positive: Hearing grossly normal Neck: Positive: Supple, Nontender, No Lymphadenopathy Respiratory Exam: Normal Cardiovascular Exam: Normal Abdomen Description: Positive: Nontender, Soft. Negative: CVA Tenderness (R), CVA Tenderness (L), Distended, Guarding Bowel Sounds: Positive: Present Musculoskeletal: Positive: No Edema Neurological: Positive: Alert Psychological: Positive: Age Appropriate Behavior Skin: Negative: Rashes Abd Pain Female Course/Dx - Course Course Of Treatment: PATIENT TOOK A ZOFRAN DURING THE ENCOUNTER AND STARTED TO FEEL BETTER AFTER A FEW MINUTES. CBC, CMP, LIPASE DRAWN TODAY FOR FURTHER EVALUATION. PATIENT IS ALREADY ESTABLISHED WITH GI FOR THIS CHRONIC PROBLEM AND DOES HAVE AN APPOINTMENT IN 2 WEEKS WHICH I ADVISED HER TO KEEP. SHE WILL GO TO THE ER WITHOUT FAIL IF HER SYMPTOMS WORSEN. - Differential Dx/Diagnosis Provider Diagnosis: Epigastric abdominal pain Discharge ED - Sign-Out/Discharge Documenting (check all that apply): Patient Departure All imaging exams completed and their final reports reviewed: No Studies - Discharge Plan Condition: Stable Disposition: HOME Patient Education Materials: Abdominal Pain (ED) Referrals: Cherri Matias MD [Primary Care Provider] - If Needed Mariel Pritchett NP [Nurse Practitioner] - Additional Instructions: KEEP YOUR GI FOLLOW-UP APPOINTMENT IN 2 WEEKS. TAKE ZOFRAN PRESCRIBED FOR NAUSEA. WATCH YOUR DIET RECOMMEND BLAND FOODS. AVOID GREASY FOOD, SPICY FOOD , CAFFEINE. GO TO THE ER WITHOUT FAIL IF YOU DEVELOP WORSENING PAIN, FEVER, BLOOD IN THE STOOL OR VOMIT, SHORTNESS OF BREATH OR ANY OTHER CONCERNING SYMPTOMS. - Billing Disposition and Condition Condition: STABLE Disposition: Home
--- OUTSIDE RECORDS SUMMARY | 2019-04-11 20:44 | XMS REPORT | Summary of Care ---
:1935 Author Organization [facility] Address [address] [facility] [place] [address] Care Team Providers Name Role Phone Cherri Matias Primary Care Provider Jeremy Torres Unavailable Feroz Cobb MD Unavailable Reason for Referral Refer to Department Only (Routine) Status Reason Specialty Diagnoses / Referred By Referred To Procedures Contact Contact Pending Gastroenterology Diagnoses Vomiting, intractability of vomiting not specified, presence of nausea not specified, unspecified vomiting type Cherri Matias [place] [facility] [address] [facility] gy/[address] [place], [place] [id number] [place] [address] Phone: [phone] Phone: Reason for Visit Reason Comments Osteopenia f/u dexa done today Lab Work Only done last OV 02/04/19 Hypertension f/u BP 122/84 GI Problem discuss ongoing monthly vomiting/diarhea issue Encounter Details Date Type Department Care Team Description 03/10/2019 Office Visit [place] [facility] Cherri Matias MD Vomiting, intractability of vomiting not specified, presence of nausea not specified, unspecified vomiting type (Primary Dx); Medicine [address] [facility] [address] Encounter for bone density measurement for therapeutic drug monitoring [address] [place] [address] [place] [address] [phone] Allergies Active Allergy Reactions Severity Noted Date Comments Bacitracin Zinc Rash 01/24/2009 Ahvhaixm-Elzvkuqsit-Dubpnpeew Rash 08/26/2008 documented as of this encounter (statuses as of 03/10/2019) Medications Medication Sig Dispensed Refills Start Date End Date Status Amoxicillin 500 MG Oral Tab Take 4 Tabs 4 Tab 5 01/16/2018 Active by mouth ONE TIME. Take 1 hour prior to dental work atenolol (TENORMIN) 25 MG Take 1 Tab by 90 Tab 3 02/04/2019 Active Oral Tab mouth DAILY. hydrochlorothiazide (HCTZ, Take 1 Cap by 90 Cap 3 02/04/2019 Active ORETIC) 12.5 MG Oral mouth DAILY. CapIndications: Essential hypertension Omeprazole delayed rel cap Take 20 mg by 90 Cap 1 02/04/2019 Active 20 MG Oral CAPSULE DELAYED mouth DAILY. RELEASEIndications: Gastroesophageal reflux disease, esophagitis presence not specified documented as of this encounter (statuses as of 03/10/2019) Active Problems Problem Noted Date H/O total hip arthroplasty, right 12/26/2017 Primary osteoarthritis of right hip 10/28/2017 Calculus of bile duct 02/01/2017 Overview: Status post cholecystectomy with cbd stones 07/20 in [place] - Status post sphincterotomy BMI 34.0-34.9,adult 01/18/2012 Overview: This patient's BMI has been calculated and is above average, and BMI management plan is completed. General patient education discussion including: obesity-related excess mortality HTN (hypertension) 01/11/2009 Diverticulosis 12/01/2007 Osteopenia 12/01/2007 documented as of this encounter (statuses as of 03/10/2019) Immunizations Name Administration Dates Next Due Depo Medrol (40mg) 01/04/2010 Influenza (IM) Preservative Free 01/21/2013, 01/18/2012 Influenza Vaccine 65 Yrs + 02/04/2019 Influenza Vaccine High Dose 02/01/2017, 01/31/2016, 02/17/2015 PNEUMOCOCCAL POLYSACCHARIDE VACCINE 01/21/2013 Pneumococcal Conjugate(13 Valent) 01/27/2015 TDAP Vaccine 01/13/2010 ZOSTER (ZOSTAVAX) VACCINE 02/17/2015 documented as of this encounter Social History Tobacco Use Types Packs/Day Years Used Date Never Smoker Smokeless Tobacco: Never Used Alcohol Use Drinks/Week oz/Week Comments Yes 0 Standard drinks or equivalent 0.0 rare Sex Assigned at Date Recorded Not on file Job Start Date Occupation Industry Not on file Not on file Not on file Travel History Travel Start Travel End No recent travel history available. documented as of this encounter Last Filed Vital Signs Vital Sign Reading Time Taken Comments Blood Pressure 122/84 03/10/2019 9:17 AM EST Pulse 66 03/10/2019 9:17 AM EST Temperature - - Respiratory Rate - - Oxygen Saturation - - Inhaled Oxygen Concentration - - Weight 83 kg (183 lb) 03/10/2019 9:17 AM EST Height 154.9 cm (5' 1") 03/10/2019 9:17 AM EST Body Mass Index 34.58 03/10/2019 9:17 AM EST documented in this encounter Patient Instructions Patient InstructionsCherri Matias MD - 03/10/2019 9:40 AM ESTBone health: 1. Take 1000-mg of Calcium/day divided dose and with a meal (better absorbed with fat( calcium best out of The diet - Dairy - [place] ( in the can best) sardines) some vegetables - For example cabbage and partcularly bok coleman 2. Take 800- IU Vit D in the form of cholecalficerol (D3). Avoid ergocalciferol (not absorbed well) 3. Weight bearing exercize (walking, etc.) and strength training 4. Daily exposure to sunlight (though not enought to turn skin pink) 5. I recommend visiting the following web site for more information on Vit D supplementation http://www.vitamindcJustyle.[email or web address].shtml documented in this encounter Progress Notes Cherri Matias MD - 03/10/2019 9:40 AM EST NAME:Sandra Perez [birth year] ENC Date: 03/10/2019 CC: Chief Complaint Patient presents with Osteopenia f/u dexa done today Lab Work Only done last OV 02/04/19 Hypertension f/u BP 122/84 GI Problem discuss ongoing monthly vomiting/diarhea issue Sandra Perez is a 83-y.o. female Has history of cholecystecomy - negative right upper quadrant Ultrasound 01/22 1. Having episodic vomiting / diarrhea - onset this summer - 4 episodes- ( ~ 1 month apart) All occur after breakfast Except one after dinner on a travel bus- - feels a tightening and then will proceed to vomit and have diarrhea - episode lasts 20 min - No associated food ( breakfast Episodes occur after coffee/ yogurt- / bagel - - -no stomach symptoms in between - No unusual flushing - 2. Review of dxa - Good bone mineral density - All in the ostepenia zone with no loss in the last 5yrs and little loss since 2002 Current Outpatient Medications Medication Sig Amoxicillin 500 MG Oral Tab Take 4 Tabs by mouth ONE TIME. Take 1 hour prior to dental work atenolol (TENORMIN) 25 MG Oral Tab Take 1 Tab by mouth DAILY. hydrochlorothiazide (HCTZ, ORETIC) 12.5 MG Oral Cap Take 1 Cap by mouth DAILY. Omeprazole delayed rel cap 20 MG Oral CAPSULE DELAYED RELEASE Take 20 mg by mouth DAILY. No current facility-administered medications for this visit. Patient Active Problem List Diagnosis Date Noted H/O total hip arthroplasty, right 12/26/2017 Primary osteoarthritis of right hip 10/28/2017 Calculus of bile duct 02/01/2017 Status post cholecystectomy with cbd stones 07/20 in [place] - Status post sphincterotomy BMI 34.0-34.9,adult 01/18/2012 This patient's BMI has been calculated and is above average, and BMI management plan is completed. General patient education discussion including: obesity-related excess mortality HTN (hypertension) 01/11/2009 Diverticulosis 12/01/2007 Osteopenia 12/01/2007 Family History Problem Relation Age of Onset Respiratory Father Emphysema No Known Problems Sister No Known Problems Daughter No Known Problems Son No Known Problems Sister No Known Problems Daughter Anesth Problems No family history Arthritis No family history Cancer No family history Clotting Disorder No family history Diabetes No family history Heart Disease No family history Hypertension No family history Kidney Disease No family history Thyroid Disease No family history No cardiopulmonary symptoms No upper or lower GI complaints No urinary tract symptoms. No bruising/ bleeding. No neurological complaints . No insomnia.+ . Social History Tobacco Use Smoking status: Never Smoker Smokeless tobacco: Never Used Substance Use Topics Alcohol use: Yes Alcohol/week: 0.0 standard drinks Comment: rare Drug use: No OBJECTIVE: BP 122/84 | Pulse 66 | Ht 5' 1" (1.549 m) | Wt 183 lb (83 kg) | BMI 34.58 kg /m . A/P ICD-9-CM ICD-10-CM 1. Vomiting, intractability of vomiting not specified, presence of nausea not specified, unspecifiedvomiting type Already on omeprazole dailly Status post cholecystectomy - Ask [place] to review 787.03 R11.10 2. Encounter for bone density measurement for therapeutic drug monitoring- Stable good results - Reviewed with the patient in detail V58.83 Z01.89 V58.69 Z79.899 Patient Instructions Bone health: 1. Take 1000-mg of Calcium/day divided dose and with a meal ( better absorbed with fat( calcium best out of The diet - Dairy - [place] ( in the can best) sardines) some vegetables - For example cabbage and partcularly bok coleman 2. Take 800- IU Vit D in the form of cholecalficerol (D3). Avoid ergocalciferol (not absorbed well) 3. Weight bearing exercize (walking, etc.) and strength training 4. Daily exposure to sunlight (though not enought to turn skin pink) 5. I recommend visiting the following web site for more information on Vit D supplementation http://[email or web address]/LatinMedios.[email or web address].[email or web address] AUTHOR: Cherri Matias MD 10:24 03/10/2019 documented in this encounter Plan of Treatment Name Type Priority Associated Diagnoses Order Schedule REFER TO GI Referral Routine Vomiting, intractability of Expected: 2018, vomiting not specified, Expires: 03/10/2020 presence of nausea not specified, unspecified vomiting type Health Maintenance Due Date Last Done Comments HIV SCREENING 08/24/1950 ZOSTER IMMUNIZATION SERIES 04/14/2015 02/17/2015 (2 of 3) MEDICARE ANNUAL WELLNESS 09/24/2018 09/24/2017, 01/31/2016, VISIT 01/27/2015, Additional history exists DEPRESSION SCREENING 02/05/2020 02/04/2019 FALL RISK ASSESSMENT 02/05/2020 02/04/2019, 02/04/2019 PNEUMOCOCCAL 65+YRS Completed 01/27/2015, 01/21/2013 INFLUENZA VACCINE Completed 02/04/2019, 02/01/2017, 01/31/2016, Additional history exists HPV IMMUNIZATION SERIES Aged Out No longer eligible based on patient's age to complete this topic MENINGOCOCCAL VACCINE IMM Aged Out No longer eligible based on patient's age to complete this topic documented as of this encounter Goals Goal Patient Goal Associated Recent Patient-Stated? Author Type Problems Progress Blood Pressure Blood Pressure HTN 122/84 No C[place]et, < 140/90 (hypertension) (03/10/2019 MD Cherri 9:17 AM EST) Note: Hypertension Care Plan Based on the patient's clinical history and according to JNC 8 guidelines target blood pressure goal is less than 140/90. Based on the patient's last blood pressure of BP: 130/82 mmHg the patient is at at goal. As your provider, it is important that I advise you regarding: your current medications and help you with any challenges you may face taking your medications as directed (ex. instructions, cost, side effects, and interactions). lifestyle changes: exercise, weight reduction and diet your clinical goals and how you can achieve success: weight reduction medication management: adjusted medications as appropriate the availability of a auto care center manager to help you with your Hypertension patient education/self-management tools provided: Current self-management tools adequate To successfully manage my Hypertension I will: monitor my blood pressure daily, understanding that my goal is less than 140/ 90 per my healthcare provider's recommendation. I will schedule an appointment with my provider if consistent abnormal readings greater than 160/100. take medications every day as prescribed by my healthcare provider and if unable to take them I will discuss with my provider. monitor for symptoms of chest pain, chest tightness/pressure, irregular heartbeat, persistent dizziness, radiating arm pain, and neck or jaw pain. If any of these symptoms are noticed I will seek medical attention immediately by calling 911 exercise/walk 15 minutes 5 day(s) per week. If I experience chest pain, chest tightness, or shortness of breath, I will seek medical attention immediately. follow a diet rich in fruits, vegetables, and low-fat dairy products with reduced content of saturated & total fat. I will reduce my sodium intake daily. An example is the DASH diet. To obtain more information please refer to the DASH Eating Plan listed in Educational Resources. record my blood pressure results. [employer] is safe and secure way for you to do this in your medical record online. try to obtain an ideal body weight. My recent weight was Weight: 182 lb ( 82.555 kg). My weight loss goal for my next office visit is 5 lbs . limit alcohol consumption. For men two drinks per day and women one drink per day. if currently smoking, will discuss how to quit smoking with my healthcare provider and work towards quitting. Educational Resources: National Heart, Lung, & Blood [place] http://nhlbi.nih.gov/hbp/index.html The DASH Diet Eating Plan http://www.nhlbi.nih.gov/health/health-topics/ topics/dash/ Academy of Nutrition & DIetetics http://eatright.org National Smoking Cessation Site http://smokefree.gov 2 Blood Pressure < 150/90 Blood Pressure 122/84 (03/10/2019 9:17 Cherri Culp MD AM EST) Note: This is an individualized treatment (blood pressure) goal for Sandra Perez: Displayed above (on the left) is your goal for blood pressure control. Your most recent blood pressure is also shown above, on the right. You should try to achieve blood pressures that are lower than your goal listed above (on the left). Weight loss vs. 18 mo Lifestyle 5.6 (03/10/2019 9:17 AM EST) Cherri Culp MD max (lbs) >= 10 Note: This is an individualized lifestyle goal for Sandra Yobany Harrisonyd: Your body mass index (BMI) is more than 30. You should lose weight. A reasonable starting goal is to lose 10 pounds. Displayed above is how many pounds you have lost thus far towards your 10 pound weight loss goal. Take all prescribed medications as directed Self-management Cherri Culp MD Note: This is an individualized self-management goal for Sandra Perez: Please take all prescribed medications as directed. 1. Do not skip doses. If you cannot afford your medications, talk with your doctor. 2. Use a pill reminder system such as a pill box if needed. Your pharmacist can help you with this. 3. Contact your Pharmacy 5 days before your medication runs out. If you cannot take your medications for any reasons, talk with your doctor. 4. Please bring all of your medication bottles and inhalers (or a list of all your medications/inhalers) with you to every visit. Potential barriers to meeting all of your care plan goals will continue to be addressed on an ongoing basis. documented as of this encounter Implants Implanted Type Area Animal Care Attendant Device Shelf Model / Serial Identifier Expiration / Lot Date Continuum Shell, Uni Hole Jj 54mm - [id number] Right: [employer] [id number] / Implanted: Qty: 1 on 12/02/2017 by Hernando Perea MD at [facility] / [id number] Dome Hole Plug - [id number] Right: [facility] 11/03/2027 [id number] / Implanted: Qty: 1 on 12/02/2017 by Hernando Perea MD at [facility] / [id number] Longevity Liner, Neutral Jj 36mm - [id number] Right: [facility] 10/03 [id number] / Implanted: Qty: 1 on 12/02/2017 by Hernando Perea MD at [facility] / [id number] T[place]loc Complete Fem Stem - So Sz 14 - [id number] Right: [employer] 10/23/2027 [id number] / Implanted: Qty: 1 on 12/02/2017 by Hernando Perea MD at [facility] / [id number] Ceramic Modular Head 36 Std - [id number] Right: [employer] 2027 [id number] / Implanted: Qty: 1 on 12/02/2017 by Hernando Perea MD at [facility] / [id number] documented as of this encounter Results Not on filedocumented in this encounter Visit Diagnoses Diagnosis Vomiting, intractability of vomiting not specified, presence of nausea not specified, unspecified vomiting type - Primary Encounter for bone density measurement for therapeutic drug monitoring Encounter for long-term (current) use of other medications documented in this encounter Insurance Payer Benefit Plan / Subscriber ID Effective Dates Phone Address Type Group MEDICARE MEDICARE PART A xxxxxxxxxxx 2001-Present Medicare & B AETNA COMMERCIAL AETNA xxxxxxxxxx 2015-Lynne villatoro Guarantor Name Account Type Relation to Date of Phone Billing Patient Address Sandra Perez I Personal/Family 1935 [address] [phone] [place], [place] (Work) [id number] documented as of this encounter
--- OUTSIDE RECORDS SUMMARY | 2019-04-11 20:44 | XMS REPORT | Summary of Care ---
:1935 Author Organization [facility] Address [address] [facility] [place] [address] [address] Care Team Providers Name Role Phone Cherri Matias Primary Care Provider Jeremy Torres Unavailable Feroz Cobb MD Unavailable Reason for Visit Reason Comments GI Problem New pt. referred by Dr. Matias for 4 recurrent 20-min. episodes of vomiting with diarrhea. Refer to Department Only (Routine) Status Reason Specialty Diagnoses / Referred By Referred To Procedures Contact Contact Pending Gastroenterology Diagnoses Vomiting, intractability of vomiting not specified, presence of nausea not specified, unspecified vomiting type Cherri Matias [place] [facility] [address] [facility] [place] [place] [address] [address] [place], [place] Phone: [phone] Phone: Encounter Details Date Type Department Care Team Description 03/24/2019 Office Visit Gerri Pritchett, Non-intractable vomiting with nausea, unspecified vomiting type (Primary Dx); Gastroenterology/He Mariel Holden NP Gastroesophageal reflux disease, esophagitis presence not specified patology 1 [facility] [address] [facility] [place] [address] [address] [place] [address] [phone] Allergies Active Allergy Reactions Severity Noted Date Comments Bacitracin Zinc Rash 01/24/2009 Ihtftrbg-Mjwvpvgmmf-Ngaxdywuu Rash 08/26/2008 documented as of this encounter (statuses as of 03/24/2019) Medications Medication Sig Dispensed Refills Start End Date Status Date Amoxicillin 500 MG Oral Take 4 4 Tab 5 Active Tab Tabs by 8 mouth ONE TIME. Take 1 hour prior to dental work atenolol (TENORMIN) 25 Take 1 Tab 90 Tab 3 Active MG Oral Tab by mouth 9 DAILY. hydrochlorothiazide Take 1 Cap 90 Cap 3 Active (HCTZ, ORETIC) 12.5 MG by mouth 9 Oral CapIndications: DAILY. Essential hypertension Omeprazole delayed rel Take 20 mg 180 Cap 0 Active cap 20 MG Oral CAPSULE by mouth 9 DELAYED TWICE RELEASEIndications: DAILY. Gastroesophageal reflux disease, esophagitis presence not specified ondansetron (ZOFRAN ODT) Take 1 Tab 20 Tab 0 Active 4 MG Oral TABLET by mouth 9 DISPERSIBLE EVERY SIX HOURS NEEDED (nausea, vomting). Omeprazole delayed rel Take 20 mg 90 Cap 1 03/24/20 Discontinued cap 20 MG Oral CAPSULE by mouth 9 19 (Reorder) DELAYED DAILY. RELEASEIndications: Gastroesophageal reflux disease, esophagitis presence not specified documented as of this encounter (statuses as of 03/24/2019) Active Problems Problem Noted Date H/O total hip arthroplasty, right 12/26/2017 Primary osteoarthritis of right hip 10/28/2017 Calculus of bile duct 02/01/2017 Overview: Status post cholecystectomy with cbd stones 07/20 in [place] - Status post sphincterotomy BMI 34.0-34.9,adult 01/18/2012 Overview: This patient's BMI has been calculated and is above average, and BMI management plan is completed. General patient education discussion including: obesity-related excess mortality HTN (hypertension) 01/11/2009 Diverticulosis 12/01/2007 Osteopenia 12/01/2007 documented as of this encounter (statuses as of 03/24/2019) Immunizations Name Administration Dates Next Due Depo [...] Sign Reading Time Taken Comments Blood Pressure 138/80 03/24/2019 8:54 AM EST Pulse 72 03/24/2019 8:54 AM EST Temperature 35.8 03/24/2019 8:54 AM EST C (96.5 F) Respiratory Rate - - Oxygen Saturation - - Inhaled Oxygen Concentration - - Weight 83.2 kg (183 lb 8 oz) 03/24/2019 8:54 AM EST Height 154.9 cm (5' 1") 03/24/2019 8:54 AM EST Body Mass Index 34.67 03/24/2019 8:54 AM EST documented in this encounter Patient Instructions Patient InstructionsMariel Pritchett NP - 03/24/2019 9:00 AM EST1. Will increase the omeprazole to twice daily on an empty stomach 2. Will try Zofran should symptoms recur 3. Follow up if symptoms recur If you have not already been screened for Hepatitis C we would be happy to do that for you today. Currently we recommend screening for hepatitis C virus (HCV ) infection in persons at high risk for infection, and to adults born between 1945 and 1965. Thank you for choosing the [facility] for your needs today! -Mariel Pritchett N.P. , Please call if you need to cancel or change your appt. time. Thank you for choosing [facility] for your health care needs, and for consulting with [facility] today. You may receive a survey following this visit, or after an upcoming hospital stay. As easy as it is to feel overloaded with surveys, we are required to send them out randomly and they do provide important feedback so that we may serve your needs in the best way. Please do take the few minutes required to complete the survey if you receive one. We get them too, after seeing the doctor, and they only take a few minutes to complete. documented in this encounter Progress Notes Mariel Pritchett NP - 03/24/2019 9:00 AM EST PATIENT: Sandra Perez : 1935 DATE OF SERVICE: 03/24/2019 REFERRING PRACTITIONER: Cherri Matias PRIMARY CARE PROVIDER: Cherri Matias CHIEF COMPLAINT: Chief Complaint Patient presents with GI Problem New pt. referred by Dr. Matias for 4 recurrent 20-min. episodes of vomiting with diarrhea. Subjective HISTORY OF PRESENT ILLNESS: Sandra Perez is a 83-y.o. female who presents for a consultation for evaluation of intermittent vomiting. Onset was several months ago. Symptoms have been intermittent since, occurring roughly once a month. She reports symptoms are typically in the morning After breakfast which includes 3 cups of coffee and yogurt with fruit, cereal with milk or a bagel. She reports just a few moments afterwards she will feel her upper abdomen become "hard" she develops nausea, then vomits and has diarrhea. Symptoms resolve after 20 minutes and she feels well for the remainder of the day. A recent US was unremarkable. Her last EGD was 2017 and was unremarkable. She does have history of cholecystectomy in 1998 and subsequent gallstone removal in 2015 while in [place]. She is on low dose Omeprazole each morning. Denies abdominal pain,heartburn, dysphagia, fatigue, melena, hamatemesis, hematochezia, constipation, jaundice, fevers, chills, night sweats, weight loss , easy bruising, chest pain, shortness of breath, dysuria, hematuria, pyuria, joint pains, acholic stools, dark urine or systemic pruritis. Past Medical History: Diagnosis Date Diverticulosis 12/01/2007 Osteopenia 12/01/2007 Postmenopausal Past Surgical History: Procedure Laterality Date CHOLECYSTECTOMY 09/1998 EGD N/A 09/27/2017 Procedure: ENDOSCOPY UPPER GI; Surgeon: Jeremy Torres MD; Location: [facility] MAIN OR [place] ORBIT SURGERY PROC UNLISTED cataracts with lenses IL PELVIS/HIP JOINT SURGERY UNLISTED IL RECONSTRUCT SCAPHOID CARPAL W PROSTHESIS IL TOTAL HIP ARTHROPLASTY Right 12/02/2017 Procedure: ARTHROPLASTY TOTAL HIP CONTINUM TAPER LOC; Surgeon: Hernando Perea MD; [facility]: [facility] TONSILLECTOMY Family History Problem Relation Age of Onset [...] family history Thyroid Disease No family history Current Outpatient Medications Medication Sig Amoxicillin 500 [...] DELAYED RELEASE Take 20 mg by mouth TWICE DAILY. ondansetron (ZOFRAN ODT) 4 MG Oral TABLET DISPERSIBLE Take 1 Tab by mouth EVERY SIX HOURS NEEDED (nausea, vomting). No current facility-administered medications for this visit. Allergies Allergen Reactions Bacitracin Zinc Rash Sxzlywel-Digsqntjfp-Yyzexmfju Rash Social History Socioeconomic History Marital status: Spouse name: Not on file Number of children: Not on file Years of education: Not on file Highest education level: Not on file Occupational History Not on file Social Needs Financial resource strain: Not on file Food insecurity: Worry: Not on file Inability: Not on file Transportation needs: Medical: Not on file Non-medical: Not on file Tobacco Use Smoking status: Never Smoker Smokeless tobacco: Never Used Substance and Sexual Activity Alcohol use: Yes Alcohol/week: 0.0 standard drinks Comment: rare Drug use: No Sexual activity: Yes Partners: Male Lifestyle Physical activity: Days per week: Not on file Minutes per session: Not on file Stress: Not on file Relationships Social connections: Talks on phone: Not on file Gets together: Not on file Attends mandaen service: Not on file Active member of club or organization: Not on file Attends meetings of clubs or organizations: Not on file Relationship status: Not on file Intimate partner violence: Fear of current or ex partner: Not on file Emotionally abused: Not on file Physically abused: Not on file Forced sexual activity: Not on file Other Topics Concern Back Care Not Asked Bike Helmet Not Asked Blood Transfusions Not Asked Caffeine Concern Not Asked Exercise Not Asked Hobby Hazards Not Asked International Travel Not Asked Service Not Asked Occupational Exposure Not Asked Seat Belt Not Asked Self-Exams Not Asked Sleep Concern Not Asked Special Diet Not Asked Stress Concern Not Asked Weight Concern Not Asked Social History Narrative 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 Objective PHYSICAL EXAMINATION: VITALS: BP 138/80 | Pulse 72 | Temp 96.5 F (35.8 C) | Ht 5' 1" ( 1.549 m) | Wt 183 lb 8 oz (83.2 kg) | BMI 34.67 kg/m Body mass index is 34.67 kg/m. GENERAL: alert, oriented, no acute distress. HEENT: No scleral icterus, MMM Psych: Affect normal Neck: no lymphadenopathy HEART: regular rhythm, no murmurs, no gallops, no rubs. ABDOMEN: general exam: soft, non-tender, non-distended, without masses or organomegaly, normal active bowel sounds, Khoury's sign negative. Extrmities: no edema Skin: clear Neuro: gait normal, a&o x 3 RECTAL: exam deferred. IMPRESSION: ICD-9-CM ICD-10-CM 1. Non-intractable vomiting with nausea, unspecified vomiting type 787.01 R11.2 REFER TO GI 2. Gastroesophageal reflux disease, esophagitis presence not specified 530.81 K21.9 Omeprazole delayed rel cap 20 MG Oral CAPSULE DELAYED RELEASE Plan PLAN: Nonpharmacologic treatments were discussed including: eating smaller meals, elevation of the head of bed at night, avoidance of caffeine, chocolate, nicotine and peppermint, avoiding tight fitting clothing. Patient Instructions 1. Will increase the omeprazole to twice daily on an empty stomach 2. Will try Zofran should symptoms recur 3. Follow up if symptoms recur If you have not already been screened for Hepatitis C we would be happy to do that for you today. Currently we recommend screening for hepatitis C virus (HCV ) infection in persons at high risk for infection, and to adults born between 1945 and 1965. Thank you for choosing the [facility] for your needs today! -Mariel Pritchett N.P. , Please call if you need to cancel or change your appt. time. Thank you for choosing [facility] for your health care needs, and for consulting with [facility] today. You may receive a survey following this visit, or after an upcoming hospital stay. As easy as it is to feel overloaded with surveys, we are required to send them out randomly and they do provide important feedback so that we may serve your needs in the best way. Please do take the few minutes required to complete the survey if you receive one. We get them too, after seeing the doctor, and they only take a few minutes to complete. Author: Mariel Pritchett NP 03/24/2019 09:24 documented in this encounter Plan of Treatment Health Maintenance Due Date Last Done Comments [...] Problems Progress Blood Pressure Blood Pressure HTN 138/80 No Crepet, < 140/90 (hypertension) (03/24/2019 MD Cherri 8:54 AM EST) Note: Hypertension Care Plan Based [...] medications as appropriate the availability of a primary care md to help you with your Hypertension patient [...] Educational Resources: National Heart, Lung, & Blood [place] http://nhlbi.nih.gov/hbp/index.html The DASH Diet Eating Plan http://www.nhlbi.nih.gov/health/health-topics/ topics/dash/ Academy of Nutrition & DIetetics http://eatright.org National Smoking Cessation Site http://smokefree.gov 2 Blood Pressure < 150/90 Blood Pressure 138/80 (03/24/2019 8:54 Cherri Culp MD AM EST) Note: This [...] left). Weight loss vs. 18 mo Lifestyle 5.1 (03/24/2019 8:54 AM EST) Cherri Culp MD max (lbs) >= 10 Note: This is an individualized lifestyle goal for Sandra Perez: Your body mass index (BMI) is more [...] of this encounter Implants Implanted Type Area Drier Take Off Tender Device Shelf Model / Serial Identifier Expiration / Lot Date Continuum Shell, Uni Hole Jj 54mm - [id number] Right: WILLIAN CAPONE [id number] / Implanted: Qty: 1 on 12/02/2017 by Hernando Perea MD at [facility] [employer] / [id number] Dome Hole Plug - [id number] Right: WILLIAN CAPONE 11/03/2027 [id number] / Implanted: Qty: 1 on 12/02/2017 by Hernando Perea MD at [facility] [employer] / [id number] Longevity Liner, Neutral Jj 36mm - [id number] Right: WILLIAN ESTELITA 10/03 [id number] / Implanted: Qty: 1 on 12/02/2017 by Hernando Perea MD at [facility] [employer] / [id number] Taperloc Complete Fem Stem - So Sz 14 - [id number] Right: [employer] 10/23/2027 [id number] / Implanted: Qty: 1 on 12/02/2017 by Hernando Perea MD at [facility] Hip / [id number] Ceramic Modular Head 36 Std - [id number] Right: [employer] 2027 [id number] / Implanted: Qty: 1 on 12/02/2017 by Hernando Perea MD at [facility] Hip / [id number] documented as of this encounter Results Not on filedocumented in this encounter Visit Diagnoses Diagnosis Non-intractable vomiting with nausea, unspecified vomiting type - Primary Gastroesophageal reflux disease, esophagitis presence not specified documented in this encounter Insurance Payer Benefit Plan / Subscriber ID Effective Dates Phone Address Type Group MEDICARE MEDICARE PART A xxxxxxxxxxx 2001-Present Medicare & B AETNA COMMERCIAL AETNA xxxxxxxxxx 2015-[facility] [employer] t Guarantor Name Account Type Relation to Date of Phone Billing Patient Address Sandra Perez I Personal/Family 1935 [address] ([address]) [address] [phone] [place], [place] (Work) [id number] documented as of this encounter
[2019-04-12 10:39] LABS: ABS Basophils 0.1 10^3/ul (0-0.2); ABS Eosinophils 0.1 10^3/ul (0-0.6); ABS Lymphocytes 0.8 10^3/ul (1.0-4.8); ABS Monocytes 1.1 10^3/ul (0-0.8); ABS Neutrophils 13.9 10^3/ul (1.5-7.7); Eosinophil % 0.4 %; Hematocrit 46 % (35-47); Hemoglobin 15.4 g/dL (12.0-16.0); Mean Corpuscular HGB Conc 34 g/dL (31-36); Mean Corpuscular Hemoglobin 30 pg (27-31); Mean Corpuscular Volume 90 fL (80-97); Mean Platelet Volume 11.1 fL (7.4-10.4); Platelet Count 281 10^3/uL (150-450); Red Blood Count 5.11 10^6 /uL (3.70-4.87); Red Cell Distribution Width 14 % (10-15)
[2019-04-12 10:50] LABS: Albumin 4.2 g/dL (3.2-5.2); Anion Gap 12 mmol/L (2-11); CO2 Carbon Dioxide 26 mmol/L (22-32); Chloride 99 mmol/L (101-111); Sodium 137 mmol/L (135-145)
[2019-04-12 10:56] LABS: ALT 327 U/L (7-52); AST 395 U/L (13-39); Albumin/Globulin Ratio 1.6 (1-3); Alkaline Phosphatase 258 U/L (34-104); BUN/Creatinine Ratio 16.8 (8-20); Blood Urea Nitrogen 16 mg/dL (6-24); EGFR African American 68.1 (>60); EGFR Non-African American 56.3 (>60); Globulin 2.6 g/dL (2-4); Glucose 118 mg/dL (70-100); Total Protein 6.8 g/dL (6.4-8.9)
--- NOTE | 2019-04-12 17:05 | UC ---
- Progress Note Progress Note: CBC CMP lipase from April 12, 2019 comes back. White blood cell count is elevated at 16,000 with 13.9 absolute neutrophils. Glucose elevated at 118. Total bilirubin elevated at 2.0. Alkaline phosphatase elevated at 258. ALT elevated 327. AST elevated at 395. Lipase was less than 10 is low. Nursing to call patient inform her of the results and recommend further evaluation today in the emergency department. Course/Dx - Diagnoses Provider Diagnoses: Epigastric abdominal pain Discharge ED - Sign-Out/Discharge Documenting (check all that apply): Patient Departure All imaging exams completed and their final reports reviewed: No Studies - Discharge Plan Condition: Stable Disposition: HOME Patient Education Materials: Abdominal Pain (ED) Referrals: Cherri Matias MD [Primary Care Provider] - If Needed Mariel Pritchett NP [Nurse Practitioner] - Additional Instructions: KEEP YOUR GI FOLLOW-UP APPOINTMENT IN 2 WEEKS. TAKE ZOFRAN PRESCRIBED FOR NAUSEA. WATCH YOUR DIET RECOMMEND BLAND FOODS. AVOID GREASY FOOD, SPICY FOOD , CAFFEINE. GO TO THE ER WITHOUT FAIL IF YOU DEVELOP WORSENING PAIN, FEVER, BLOOD IN THE STOOL OR VOMIT, SHORTNESS OF BREATH OR ANY OTHER CONCERNING SYMPTOMS. - Billing Disposition and Condition Condition: STABLE Disposition: Home
== END 2019-04-11 21:00 | disposition home or self-care (01) ==
LOC: UCEAST 19:13
DX: R10.13 Epigastric pain (principal); I10 Essential (primary) hypertension; R11.2 Nausea with vomiting, unspecified; R19.7 Diarrhea, unspecified; Z88.1 Allergy status to other antibiotic agents
CPT/HCPCS: 36415; 80053; 83690; 85025; 99211; G0463

== ENCOUNTER 2019-04-12 19:54 | Emergency (ER) | payer MEDICARE, OTHER ==
--- NOTE | 2019-04-12 21:36 | ED ---
Abdominal Pain/Female - HPI Summary HPI Summary: Pt is an 83 y/o F presenting to the ED with a chief complaint of abd pain initially onset months ago. She reports episodes that last 20-25 minutes at a time that have been occurring since this summer. She had her gallbladder removed over 20 yrs ago, and had stones removed from her bile duct this past summer. She saw GI from [place] 03/24/19, and was told to come back with more vomiting. She reports nausea and diarrhea on 04/08 and 04/09 that alleviated after she vomited, followed by chills all day on 04/11. During these episodes, she experiences bloating and abd pain across her upper abd that is worse than childbirth. [facility], and they called her to come into the ED tonight d/t abnml lab work. - History of Current Complaint Chief Complaint: EDNauseaVomitDiarrh Stated Complaint: ABNORMAL LABS PER PT Time Seen by Provider: 04/12/19 21:20 Hx Obtained From: Patient Onset/Duration: Sudden Onset, Lasting Weeks, Still Present Timing: Minutes Severity Initially: Severe Severity Currently: None Pain Intensity: 0 Pain Scale Used: 0-10 Numeric Location: Epigastric Radiates: No Aggravating Factor(s): Nothing Alleviating Factor(s): Vomiting Associated Signs and Symptoms: Positive: Nausea, Vomiting, Diarrhea Allergies/Adverse Reactions: Allergies Allergy/AdvReac Type Severity Reaction Status Date / Time bacitracin Allergy Rash And Verified 04/12/19 20:13 Itching neomycin Allergy Rash And Verified 04/12/19 20:13 [From Neosporin Itching ([id number])] polymyxin B Allergy Rash And Verified 04/12/19 20:13 [From Neosporin Itching ([id number])] PMH/Surg Hx/FS Hx/Imm Hx Previously Healthy: Yes Endocrine/Hematology History: Denies: Hx Diabetes Cardiovascular History: Reports: Hx Hypertension Denies: Hx Hypercholesterolemia, Hx Pacemaker/ICD GI History: Reports: Hx Diverticulosis, Hx Gall Bladder Disease, Hx Gastroesophageal Reflux Disease History: Denies: Hx Renal Disease Musculoskeletal History: Reports: Hx Arthritis - fingers, Hx Bursitis - hip Sensory History: Reports: Hx Cataracts - pending surgery, Hx Contacts or Glasses Denies: Hx Hearing Aid Opthamlomology History: Reports: Hx Cataracts - pending surgery, Hx Contacts or Glasses Psychiatric History: Denies: Hx Panic Disorder - Surgical History Surgery Procedure, Year, and Place: Tonsils. Gall bladder removed 2017 [facility] Hx Anesthesia Reactions: No Infectious Disease History: No Infectious Disease History: Denies: Traveled Outside the [place] in Last 30 Days - Family History Known Family History: Positive: Other - CVA grandfather Negative: Cardiac Disease - no [place] - Social History Alcohol Use: Rare Hx Substance Use: No Substance Use Type: Reports: None Hx Tobacco Use: No Smoking Status (MU): Never Smoked Tobacco Review of Systems Positive: Chills Positive: Abdominal Pain, Vomiting, Diarrhea, Nausea All Other Systems Reviewed And Are Negative: Yes Physical Exam - Summary Physical Exam Summary: Appearance: Well-appearing, Well-nourished, lying in bed comfortably Skin: Warm, dry, no obvious rash Eyes: sclera anicteric, no conjunctival pallor ENT: mucous membranes moist, pharynx appears normal Neck: Supple, nontender Respiratory: Clear to auscultation, no signs of respiratory distress Cardiovascular: Normal S1, S2. No murmurs. Normal distal pulses in tibial and radial bilaterally. Abdomen: Soft, nontender, normal active bowel sounds present Musculoskeletal: Normal, Strength/ROM Intact Neurological: A&Ox3, awake and alert, mentation is normal, speech is fluent and appropriate Psychiatric: affect is normal, does not appear anxious or depressed Triage Information Reviewed: Yes Vital Signs On Initial Exam: Initial Vitals Temp Pulse Resp BP Pulse Ox 97.9 F 74 15 177/72 96 04/12/19 20:10 04/12/19 20:10 04/12/19 20:10 04/12/19 20:10 04/12/19 20:10 Vital Signs Reviewed: Yes Procedures - Sedation Patient Received Moderate/Deep Sedation with Procedure: No Diagnostics - Vital Signs Vital Signs Temp Pulse Resp BP Pulse Ox 04/12/19 21:19 65 97 04/12/19 21:18 79 165/90 95 04/12/19 20:10 97.9 F 74 15 177/72 96 - Laboratory Result Diagrams: 04/12/19 21:42 04/12/19 21:42 Lab Statement: Any lab studies that have been ordered have been reviewed, and results considered in the medical decision making process. Abdominal Pain Fem Course/Dx - Course Course Of Treatment: Pt is an 83 y/o F presenting to the ED with a chief complaint of abd pain initially onset months ago. She reports episodes that last 20-25 minutes at a time that have been occurring since this summer. She reports nausea and diarrhea on 04/08 and 04/09 that alleviated after she vomited, followed by chills all day on 04/11. During these episodes, she experiences bloating and abd pain across her upper abd that is worse than childbirth. [facility], and they called her to come into the ED tonight d/t abnml lab work. Pt's physical exam is nml. Pt's results are WNL. She will be d/c'ed with dx of choledocholithiasis. She is stable and agreeable with this plan. - Diagnoses Provider Diagnoses: Choledocholithiasis Discharge ED - Sign-Out/Discharge Documenting (check all that apply): Patient Departure - Discharge Plan Condition: Good Disposition: HOME Referrals: Cherri Matias MD [Primary Care Provider] - Additional Instructions: I think your symptoms are coming from intermittently passing stones from your bile ducts. The abnormalities in your blood work noted yesterday have improved markedly, as have your symptoms, so for now nothing further need be done. 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 - Billing Disposition and Condition Condition: GOOD Disposition: Home - Attestation Statements Document Initiated by Daniel: Yes Documenting Scribe: Darling Haines Provider For Whom Daniel is Documenting (Include Credential): Tong Cunningham MD. Scribe Attestation: Darling Haywood, jogreed for Tong Cunningham MD. on 04/13/19 at 0314. Scribe Documentation Reviewed: Yes Provider Attestation: The documentation as recorded by the Darling jesus accurately reflects the service I personally performed and the decisions made by me, Tong Cunningham MD. Status of Scribe Document: Viewed
[2019-04-12 21:50] LABS: ABS Basophils 0.1 10^3/ul (0-0.2); ABS Eosinophils 0.4 10^3/ul (0-0.6); ABS Lymphocytes 1.7 10^3/ul (1.0-4.8); ABS Monocytes 0.9 10^3/ul (0-0.8); ABS Neutrophils 7.3 10^3/ul (1.5-7.7); Eosinophil % 3.9 %; Hematocrit 42 % (35-47); Hemoglobin 14.3 g/dL (12.0-16.0); Lymphocyte % 16.4 %; Mean Corpuscular HGB Conc 34 g/dL (31-36); Mean Corpuscular Hemoglobin 31 pg (27-31); Mean Corpuscular Volume 91 fL (80-97); Mean Platelet Volume 9.3 fL (7.4-10.4); Platelet Count 236 10^3/uL (150-450); Red Blood Count 4.67 10^6 /uL (3.70-4.87); Red Cell Distribution Width 14 % (10-15); White Blood Count 10.5 10^3/uL (3.5-10.8)
[2019-04-12 22:11] LABS: Albumin/Globulin Ratio 1.4 (1-3); BUN/Creatinine Ratio 17.7 (8-20); Calcium 9.5 mg/dL (8.6-10.3); EGFR African American 67.3 (>60); EGFR Non-African American 55.6 (>60); Globulin 2.9 g/dL (2-4); Potassium 3.8 mmol/L (3.5-5.0); Total Bilirubin 0.9 mg/dL (0.2-1.0); Total Protein 6.9 g/dL (6.4-8.9)
[2019-04-12] MEDS ORDERED: Ondansetron INJ* 2 MG/ML VIAL IV ONE (22:46)
[2019-04-12] MEDS ORDERED: Morphine 10 MG/ML VIAL (1 ml) IV ONE (22:46)
[2019-04-12 23:12] VITALS: BP 164/98
== END 2019-04-12 23:11 | disposition home or self-care (01) ==
LOC: ED 19:54
DX: K80.50 Calculus of bile duct without cholangitis or cholecystitis without obstruction (principal); R10.9 Unspecified abdominal pain; R11.2 Nausea with vomiting, unspecified; R19.7 Diarrhea, unspecified; I10 Essential (primary) hypertension; K21.9 Gastro-esophageal reflux disease without esophagitis
CPT/HCPCS: 36415; 80053; 85025; 99282

== ENCOUNTER 2021-10-13 10:07 | Observation (INO) ==
[~2021-10-13 10:07] MED LIST: Buffered Lidocaine 1% SYRIN 1 ml INTRADERM ONE; Lactated Ringers 1000 ml BAG 1,000 ML IV SCH
[2021-10-13] MEDS ORDERED: ceFAZolin 2 GM PREMIX 2 GM/50 ML BAG ONE (10:26)
[2021-10-13 10:54] LABS: Activated Partial Thrombo Time 35.2 seconds (26.0-38.0); INR 1.23 (0.86-1.15)
[2021-10-13] MEDS ORDERED: Midazolam 2 mg/2 ml VIAL 1 mg/ml 2 ml VIAL (2 mg) ONE (12:03)
[2021-10-13] MEDS ORDERED: ROPIVACAINE 5 MG/ML 30 ML BTL (0.5%) ONE (12:07)
[2021-10-13] MEDS ORDERED: Lidocaine 1% MPF 5 ML VIAL ONE (12:07)
[2021-10-13] MEDS ORDERED: Propofol 10 MG/ML 20 ML BTL ONE (12:21)
[2021-10-13] MEDS ORDERED: fentaNYL 250 mcg/5 ml 50 MCG/ML 5 ml VIAL (250 MCG) ONE (12:22)
[2021-10-13] MEDS ORDERED: Naloxone 0.4 mg VIAL 0.4 mg/ml 1 ml VIAL IV PRN (13:17)
[2021-10-13] MEDS ORDERED: HYDROmorphone 0.5 MG/0.5 ML SYRINGE ONE (13:23)
[2021-10-13] MEDS ORDERED: Acetaminophen IV 1 GM/100ML 100 ML IV ONE (13:45)
[2021-10-13] MEDS ORDERED: Morphine 2 MG/ML SYRINGE IV PRN (14:41)
[2021-10-13] MEDS ORDERED: Lactulose 30 ml UDC PO PRN (14:41)
[2021-10-13] MEDS ORDERED: Ondansetron 4 mg VIAL 2 MG/ML 2 ml VIAL IV PRN (14:41)
[2021-10-13] MEDS ORDERED: Ondansetron ODT 4 mg TAB 4 MG TAB PO PRN (14:41)
[2021-10-13] MEDS ORDERED: Dexamethasone IV 4 MG/ML VIAL 1 ml VIAL ONE (14:41)
[2021-10-13] MEDS ORDERED: Ondansetron 4 mg VIAL 2 MG/ML 2 ml VIAL ONE (14:41)
[2021-10-13] MEDS ORDERED: Magnesium Hydroxide LIQ 30 ML UDC PO PRN (14:41)
[2021-10-13] MEDS ORDERED: LIDOCAINE 4% TOPICAL PRN (14:49)
[2021-10-13] MEDS ORDERED: fentaNYL 100 mcg/2 ml 50 MCG/ML VIAL ONE ×2 (15:31→16:52)
[2021-10-13] MEDS: fentaNYL 100 mcg/2 ml 50 MCG/ML VIAL IV PRN ×5 (15:33→16:53)
[2021-10-13] MEDS: Lactated Ringers 1000 ml BAG 1,000 ML IV SCH (17:30)
[2021-10-13] MEDS ORDERED: Dextran 70/Hypromellose Tears Eye Drops 15 ml BTL (for Artificials Tears) BOTH EYES PRN (18:18)
[2021-10-13] MEDS ORDERED: dilTIAZem ER 120 mg CAP (NF) PO SCH (21:00)
[2021-10-13] MEDS: ceFAZolin 1 GM ADVAN 1 GM in NS 0.9% 50 ML 50 ML IVPB SCH (21:51)
[2021-10-13] MEDS: Magnesium Hydroxide LIQ 30 ML UDC PO SCH (21:51)
[2021-10-14] MEDS: Lactated Ringers 1000 ml BAG 1,000 ML IV SCH (03:56)
[2021-10-14] MEDS: ceFAZolin 1 GM ADVAN 1 GM in NS 0.9% 50 ML 50 ML IVPB SCH ×2 (05:06→13:06)
[2021-10-14 05:12] LABS: Hematocrit 30 % (35-47); Hemoglobin 9.8 g/dL (12.0-16.0); Mean Platelet Volume 7.3 fL (7.4-10.4); Platelet Count 374 10^3/uL (150-450)
[2021-10-14 05:38] LABS: Calcium 8.4 mg/dL (8.6-10.3); Potassium 3.8 mmol/L (3.5-5.0); eGFR CKD-EPI 88.6 (>60)
[2021-10-14] MEDS: Magnesium Hydroxide LIQ 30 ML UDC PO SCH (08:16)
[2021-10-14] MEDS ORDERED: Vitamin THERAPEUTIC TAB PO SCH (09:00)
[2021-10-14 11:25] VITALS: BP 105/58
== END 2021-10-14 14:15 | disposition home or self-care (01) ==
LOC: SSU 10:07 → OR 10:07
PROVIDERS: ADMIT Orthopaedic Surgery Adult Reconstructive Orthopaedic Surgery; ATTEND Orthopaedic Surgery Adult Reconstructive Orthopaedic Surgery